=== PATIENT | female | born 1980 | race Caucasian/White ===

== ENCOUNTER 2024-02-16 20:44 | Emergency (ER) | payer SELFPAY ==
[2024-02-16] MEDS ORDERED: ONDANSETRON 4 MG/2 ML VIAL ONE (21:04)
[2024-02-16 21:22] LABS: Specific Gravity > 1.030 (1.005-1.030)
[2024-02-16 21:24] LABS: Specific Gravity > 1.030 (1.005-1.030); Urine Bacteria <20 /HPF (<20); Urine Bilirubin 1+ (Negative); Urine Blood 1+ (Negative); Urine Clarity Extremely Turbid (Clear); Urine Color Yellow (Yellow); Urine Crystals Unidentified Few /HPF (None Seen); Urine Culture Reflex Order NOT NEEDED; Urine Glucose TRACE (Negative); Urine Ketones 4+ (Over) (Negative); Urine Microscopic Reflex YN ORDER UMIC; Urine Mucus 1+ /HPF (None Seen); Urine Nitrite NEGATIVE (Negative); Urine Protein 2+ (Negative); Urine Urobilinogen 1+ (Normal); Urine WBC <5 /HPF (<5); Urine WBC Clump Rare /HPF (None Seen); Urine Yeast (Budding) Trace /HPF (None Seen)
[2024-02-16 21:27] LABS: Absolute Monocytes 0.8 K/uL (0.1-1.3); Absolute Neutrophil 11.6 K/uL (1.8-8.0); Basophils % 0.3 % (0-1.3); Eosinophils % 0.2 % (0-4.4); Hematocrit 40.8 % (36.0-45.0); Hemoglobin 13.6 g/dL (12.0-15.0); Lymphocytes % 13.6 % (15.3-44.8); MCH 30.9 pg (27.0-35.0); MCHC 33.3 g/dL (32.0-36.0); MCV 92.9 fL (80-100); MPV 8.7 fL (7.6-11.3); Monocytes % 5.4 % (3.3-12.3); Neutrophils % 80.5 % (41.7-73.7); Platelets 345 thou/uL (152-406); RBC Red Blood Cell Count 4.39 M/uL (3.86-4.86); Red Cell Distribution Width 13.4 % (12.1-15.2)
[2024-02-16 21:47] LABS: Albumin 4.3 g/dL (3.4-5.0); Albumin/Globulin Ratio 1.3 (1.1-1.8); Anion Gap 10.2 mEq/L (5.0-15.0); Bilirubin Total 0.7 mg/dL (0.2-1.0); Globulin 3.2 g/dL (2.3-3.5); Potassium 3.2 mEq/L (3.5-5.1); Protein, Total 7.5 g/dL (6.4-8.2)
[2024-02-16] MEDS ORDERED: FAMOTIDINE 20 MG/2 ML VIAL IV ONE (22:01)
[2024-02-16] MEDS ORDERED: METOCLOPRAMIDE 10 MG/2mL INJ ONE (22:01)
[2024-02-16] MEDS ORDERED: NA CHLORIDE 0.9% 3,000 ML ONE (22:02)
[2024-02-16] MEDS ORDERED: PROMETHAZINE INJ 25 MG/ML AMP ONE (22:11)
--- NOTE | 2024-02-17 00:41 | RAD REPORT ---
EXAM: Abdomen Pelvis W Contrast CLINICAL INDICATION: 43-year-old female with abdominal pain. COMPARISON: None. EXAMINATION: CT of the abdomen and pelvis was performed following intravenous administration of contr ast. Oral contrast was not administered. Multiplanar reformatted images were provided. This exam was performed according to our departmental dose optimization program which includes use of automated exposure control, adjustment of the mA and/or kV according to patient size and/or use of iterative reconstruction technique. FINDINGS: Chest: Evaluation through the lung bases reveals no focal opacity, pleural effusion or pneumothorax. Heart size is within normal limits. No pericardial effusion. Abdomen and pelvis: The liver, gallbladder, pancreas, spleen, bilateral kidneys and bilateral adrenal glands are within normal limits. Focus of hypoattenuation within the left lobe liver suggestive of a hepatic cyst measuring 6 Hounsfie ld units and 1.6 cm (series 201, image 34). The vessels are patent and normal in caliber. No abdominopelvic lymph nodes are noted to be pathologically enlarged by CT measurement criteria. The bowel is within normal limits without abnormal bowel wall thickness or bowel dilation. No free air. No organizing abdominopelvic fluid collections. The appendix is within normal limits. Th e uterus and adnexa are within normal limits. Trace fluid present within the dependent pelvis, a nonspecific finding which may be physiologic in a patient this age. The osseous structures are within normal limits. IMPRESSION: 1. No specific acute intra-abdominal findings are noted to suggest etiology of the patient's abdomi nal pain. 2. Trace fluid present within the dependent pelvis, a nonspecific finding which may be physiologic in a patient this age. There Electronically signed by: Anabelle James MD 02/17/2024 12:06 AM [facility] Due to temporary technical issues with the PACS/I3 Precision reporting system, reports are being gwen d by the in-house radiologist without review as a courtesy to ensure prompt reporting the interpreting radiologist is fully responsible for the content of the report. Transcribed Date/Time: 02/17/2024 12:41 AM
--- NOTE | 2024-02-17 00:58 | ER ---
Nurse's Notes [facility] Name: Nena Aly Age: 43 yrs Sex: Female : 1980 Arrival Date: 02/16/2024 Time: 20:44 Bed 6 Private MD: Diagnosis: Acute food poisoning, acute gastroenteritis Presentation: 02/15 20:54 Chief complaint: Patient states: nausea that started around noon. States she has been cp4 unable to hold down water and crackers. Coronavirus screen: Client denies travel out of the [place] in the last 14 days. At this time, the client does not indicate any symptoms associated with coronavirus-19. Ebola Screen: Patient negative for fever greater than or equal to 101.5 degrees Fahrenheit, and additional compatible Ebola Virus Disease symptoms Patient denies exposure to infectious person. Patient denies travel to an Ebola-affected area in the 21 days before illness onset. No symptoms or risks identified at this time. Initial Sepsis Screen: Does the patient meet any 2 criteria? No. Patient's initial sepsis screen is negative. Does the patient have a suspected source of infection? No. Patient's initial sepsis screen is negative. Risk Assessment: Do you want to hurt yourself or someone else? Patient reports no desire to harm self or others. Onset of symptoms was February 16, 2024 at 12:00. 20:54 Method Of Arrival: Ambulatory 4 20:54 Acuity: ANDREI 3 cp4 Triage Assessment: 20:56 General: Appears in no apparent distress. uncomfortable, Behavior is calm, cooperative, cp4 appropriate for age. Pain: Denies pain. EENT: No signs and/or symptoms were reported regarding the EENT system. Neuro: Level of Consciousness is awake, alert, obeys commands, Oriented to person, place, time, situation. Cardiovascular: Patient's skin is warm and dry. Respiratory: Airway is patent Respiratory effort is even, unlabored. GI: Reports nausea, vomiting. : No signs and/or symptoms were reported regarding the genitourinary system. Derm: No signs and/or symptoms reported regarding the dermatologic system. Musculoskeletal: No signs and/or symptoms reported regarding the musculoskeletal system. COMPANION: 20:58 Not cp4 Historical: - Allergies: 20:56 No Known Allergies; cp4 - Immunization history:: Adult Immunizations up to date. - Infectious Disease History:: Denies. - Social history:: Smoking status: Patient denies any tobacco usage or history of. - Family history:: not pertinent. Screenin:58 [facility] ED Fall Risk Assessment (Adult) History of falling in the last 3 months, cp4 including since admission No falls in past 3 months (0 pts) Confusion or Disorientation No (0 pts) Intoxicated or Sedated No (0 pts) Impaired Gait No (0 pts) Mobility Assist Device Used No (0 pt) Altered Elimination No (0 pt) Score/Fall Risk Level 0 - 2 = Low Risk Oriented to surroundings, Maintained a safe environment, Assessed \T\ reinforced patient's understanding of fall precautions, Hourly rounding (assess needs \T\ fall precautionary measures) done. Abuse screen: Denies threats or abuse. Nutritional screening: No deficits noted. Tuberculosis screening: No symptoms or risk factors identified. Assessment: 20:58 Reassessment: No changes from previously documented assessment. GI: Abdomen is round cp4 non-distended, Bowel sounds present X 4 quads. Abd is soft and non tender X 4 quads. 22:21 GI: Pt is actively vomiting bile, clear fluid. lg3 22:44 Reassessment: Patient appears in no apparent distress at this time. Patient and/or bm8 family updated on plan of care and expected duration. Pain level reassessed. Patient is alert, oriented x 3, equal unlabored respirations, skin warm/dry/pink. Patient states feeling better. Patient states symptoms have improved. General: Appears in no apparent distress. comfortable, Behavior is calm, cooperative, appropriate for age. GI: Patient currently denies nausea, vomiting. 23:30 Reassessment: Patient appears in no apparent distress at this time. Patient and/or bm8 family updated on plan of care and expected duration. Pain level reassessed. Patient is alert, oriented x 3, equal unlabored respirations, skin warm/dry/pink. Vital Signs: 20:54 BP 123 / 98; Pulse 70; Resp 18; Temp 99; Pulse Ox 97% ; Weight 89.81 kg; Height 5 ft. 6 cp4 in. ; Pain 0/10; 22:44 BP 136 / 87; Pulse 75; Resp 17; Temp 99; Pulse Ox 99% ; Pain 2/10; bm8 23:30 BP 124 / 68; Pulse 86; Resp 18; Temp 99; Pulse Ox 98% ; Pain 2/10; bm8 02/16 01:08 BP 124 / 72; Pulse 81; Resp 18; Pulse Ox 99% ; cp4 02/15 20:54 Body Mass Index 31.96 (89.81 kg, 167.64 cm) cp4 02/15 20:54 Pain Scale: Adult cp4 22:44 Pain Scale: Adult bm8 23:30 Pain Scale: Adult bm8 [place] Coma Score: 02/15 22:44 Eye Response: spontaneous(4). Motor Response: obeys commands(6). Verbal Response: bm8 oriented(5). Total: 15. 23:30 Eye Response: spontaneous(4). Motor Response: obeys commands(6). Verbal Response: bm8 oriented(5). Total: 15. 02/16 20:55 Eye Response: spontaneous(4). Motor Response: obeys commands(6). Verbal Response: sp4 oriented(5). Total: 15. ED Course: 02/15 20:47 Patient arrived in ED. gm2 20:48 Kavon Almonte MD is Attending Physician. sp4 20:54 Jessica Serrano is Primary Nurse. cp4 20:56 Triage completed. cp4 20:58 Arm band placed on right wrist. Patient placed in waiting room. cp4 20:58 Bed in low position. Call light in reach. Side rails up X 1. cp4 20:58 No provider procedures requiring assistance completed. cp4 21:13 Inserted saline lock: 20 gauge in right antecubital area, using aseptic technique. cp4 Blood collected. Flushed with 10 mL NS. 21:18 Initial lab(s) drawn, by me. vk 22:56 CT Abd/Pelvis - IV Contrast Only In Process Unspecified. EDMS 02/16 00:56 Adam Ralph DO is Referral Physician. sp4 01:09 Provided Education on: vomiting and clear liquid diet.. cp4 01:09 intact, bleeding controlled, No redness/swelling at site. Pressure dressing applied. cp4 Administered Medications: 02/15 21:13 Drug: Ondansetron IVP 8 mg IVP once; over 2 minutes Route: IVP; Site: right antecubital;cp4 02/16 00:00 Follow up: Response: No adverse reaction cp4 02/15 22:09 Drug: NS 0.9% IV (30 ml/kg) 30 ml/kg IV at bolus once; Sepsis Protocol; to be given as lg3 a bolus over 90 minutes Route: IV; Rate: bolus; Site: right antecubital; 02/16 01:11 Follow up: IV Status: Completed infusion cp4 02/15 22:10 Drug: metoCLOPramide IVP 10 mg IVP once; over 1 to 2 minutes Route: IVP; Site: right lg3 antecubital; 02/16 00:00 Follow up: Response: No adverse reaction cp4 02/15 22:10 Drug: Famotidine IVP 20 mg IVP once; dilute with 10 mL 0.9% NaCl; give over 2 minutes lg3 Route: IVP; Site: right antecubital; 02/16 00:00 Follow up: Response: No adverse reaction cp4 02/15 22:22 Drug: Promethazine IM 50 mg IM once Route: IM; Site: right deltoid; lg3 02/16 00:00 Follow up: Response: No adverse reaction; Nausea is decreased cp4 Medication: 02/15 20:58 VIS not applicable for this client. cp4 Outcome: 02/16 00:57 Discharge ordered by . sp4 01:09 Discharged to home ambulatory, cp4 01:09 Condition: stable 01:09 Discharge instructions given to patient, family, Instructed on discharge instructions, follow up and referral plans. medication usage, Demonstrated understanding of instructions, follow-up care, medications, Prescriptions given X 2, 01:14 Patient left the ED. cp4 Signatures: Dispatcher [employer] EDRae Hart, RN RN lg3 Kavon Almonte MD MD sp4 Jessica Serrano cp4 Renate Ball gm2 Neli Medrano Brad, RN RN bm8
--- NOTE | 2024-02-17 00:58 | EDPHYS ---
Physician Documentation [facility] Name: Nena Aly Age: 43 yrs Sex: Female : 1980 Arrival Date: 02/16/2024 Time: 20:44 Bed 6 Private MD: ED Physician Kavon Almonte HPI: 02/15 20:48 This 43 yrs old Female presents to ER via Unassigned with complaints of sp4 Nausea/Vomiting, Dizziness. 02/16 20:55 43 -year-old female presents to the ER with nausea vomiting and dizziness, sp4 denies diarrhea. 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 - Infectious Disease History:: Denies. - Social history:: Smoking status: Patient denies any tobacco usage or history of. - Family history:: not pertinent. ROS: 02/16 20:55 Constitutional: Negative for fever, chills, and weight loss, Abdomen/GI: Positive sp4 nausea vomiting and dizziness All other systems are negative, Exam: 20:55 Constitutional: This is a well developed, well nourished patient who is awake, alert, sp4 and in no acute distress. Head/Face: Normocephalic, atraumatic. Eyes: Pupils equal round and reactive to light, extra-ocular motions intact. Lids and lashes normal. Conjunctiva and sclera are not injected. Cornea within normal limits. Periorbital areas with no swelling, redness, or edema. ENT: Nares patent. No nasal discharge, no septal abnormalities noted. Tympanic membranes are normal and external auditory canals are clear. Oropharynx with no redness, swelling, or masses, exudates, or evidence of obstruction, uvula midline. Mucous membranes moist. Neck: Trachea midline, no thyromegaly or masses palpated, and no cervical lymphadenopathy. Supple, full range of motion without nuchal rigidity, or vertebral point tenderness. Chest/axilla: Normal chest wall appearance and motion. Nontender with no deformity. No lesions are appreciated. Cardiovascular: Regular rate and rhythm with a normal S1 and S2. No gallops, murmurs, or rubs. Normal PMI, no JVD. No pulse deficits. Respiratory: Lungs have equal breath sounds bilaterally, clear to auscultation and percussion. No rales, rhonchi or wheezes noted. No increased work of breathing, no retractions or nasal flaring. Abdomen/GI: Soft, with normal bowel sounds. No distension or tympany. No guarding or rebound. No evidence of tenderness throughout. Back: No spinal tenderness. No costovertebral tenderness. Skin: Warm, dry with normal turgor. Normal color with no rashes, no lesions, and no evidence of cellulitis. MS/ Extremity: Pulses equal, no cyanosis. Neurovascular intact. Full, normal range of motion. Neuro: Awake and alert, GCS 15, oriented to person, place, time, and situation. Cranial nerves II-XII grossly intact. Motor strength 5/5 in all extremities. Sensory grossly intact. Psych: Awake, alert, with orientation to person, place and time. Behavior, mood, and affect are within normal limits Vital Signs: 02/15 20:54 BP 123 / 98; Pulse 70; Resp 18; Temp 99; Pulse Ox 97% ; Weight 89.81 kg; Height 5 ft. 6 cp4 in. ; Pain 0/10; 22:44 BP 136 / 87; Pulse 75; Resp 17; Temp 99; Pulse Ox 99% ; Pain 2/10; bm8 23:30 BP 124 / 68; Pulse 86; Resp 18; Temp 99; Pulse Ox 98% ; Pain 2/10; bm8 02/16 01:08 BP 124 / 72; Pulse 81; Resp 18; Pulse Ox 99% ; cp4 02/15 20:54 Body Mass Index 31.96 (89.81 kg, 167.64 cm) cp4 02/15 20:54 Pain Scale: Adult cp4 22:44 Pain Scale: Adult bm8 23:30 Pain Scale: Adult bm8 [place] Coma Score: 02/15 22:44 Eye Response: spontaneous(4). Motor Response: obeys commands(6). Verbal Response: bm8 oriented(5). Total: 15. 23:30 Eye Response: spontaneous(4). Motor Response: obeys commands(6). Verbal Response: bm8 oriented(5). Total: 15. 02/16 20:55 Eye Response: spontaneous(4). Motor Response: obeys commands(6). Verbal Response: sp4 oriented(5). Total: 15. MDM: 02/15 20:49 Medical Screening Exam initiated sp4 02/16 00:24 ED course: EXAM: Abdomen Pelvis W Contrast CLINICAL INDICATION: 43-year-old female with sp4 abdominal pain. COMPARISON: None. EXAMINATION: CT of the abdomen and pelvis was performed following intravenous administration of contrast. Oral contrast was not administered. Multiplanar reformatted images were provided. This exam was performed according to our departmental dose optimization program which includes use of automated exposure control, adjustment of the mA and/or kV according to patient size and/or use of iterative reconstruction technique. FINDINGS: Chest: Evaluation through the lung bases reveals no focal opacity, pleural effusion or pneumothorax. Heart size is within normal limits. No pericardial effusion. Abdomen and pelvis: The liver, gallbladder, pancreas, spleen, bilateral kidneys and bilateral adrenal glands are within normal limits. Focus of hypoattenuation within the left lobe liver suggestive of a hepatic cyst measuring 6 Hounsfield units and 1.6 cm (series 201, image 34). The vessels are patent and normal in caliber. No abdominopelvic lymph nodes are noted to be pathologically enlarged by CT measurement criteria. The bowel is within normal limits without abnormal bowel wall thickness or bowel dilation. No free air. No organizing abdominopelvic fluid collections. The appendix is within normal limits. The uterus and adnexa are within normal limits. Trace fluid present within the dependent pelvis, a nonspecific finding which may be physiologic in a patient this age. The osseous structures are within normal limits. IMPRESSION: 1. No specific acute intra-abdominal findings are noted to suggest etiology of the patient's abdominal pain. 2. Trace fluid present within the dependent pelvis, a nonspecific finding which may be physiologic in a patient this age. 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 20:56 Differential diagnosis: Nonspecific abd pain, gastritis, cholecystitis, viral sp4 gastroenteritis, gastroenteritis. Data reviewed: vital signs, nurses notes, lab test result(s), radiologic studies, CT scan. ED course: Vomiting has responded to Phenergan IM. Patient will be prescribed Phenergan as needed , advised clear liquid diet for 24. 02/15 20:49 Order name: CBC with Diff; Complete Time: 23:14 sp4 02/15 20:49 Order name: CMP; Complete Time: 23:14 sp4 02/15 20:49 Order name: Lipase; Complete Time: 23:14 sp4 02/15 20:49 Order name: Test, Urine; Complete Time: 23:14 sp4 02/15 20:49 Order name: Urinalysis w/ reflexes; Complete Time: 23:14 sp4 02/15 21:33 Order name: CT Abd/Pelvis - IV Contrast Only 4 02/15 20:49 Order name: IV Saline Lock; Complete Time: 21:12 sp4 02/15 20:49 Order name: Labs collected and sent; Complete Time: 21:12 sp4 Administered Medications: 02/15 21:13 Drug: Ondansetron IVP 8 mg IVP once; over 2 minutes Route: IVP; Site: right antecubital;4 02/16 00:00 Follow up: Response: No adverse reaction [facility] 02/15 22:09 Drug: NS 0.9% IV (30 ml/kg) 30 ml/kg IV at bolus once; Sepsis Protocol; to be given as lg3 a bolus over 90 minutes Route: IV; Rate: bolus; Site: right antecubital; 02/16 01:11 Follow up: IV Status: Completed infusion [facility] 02/15 22:10 Drug: metoCLOPramide IVP 10 mg IVP once; over 1 to 2 minutes Route: IVP; Site: right lg3 antecubital; 02/16 00:00 Follow up: Response: No adverse reaction [facility] 02/15 22:10 Drug: Famotidine IVP 20 mg IVP once; dilute with 10 mL 0.9% NaCl; give over 2 minutes lg3 Route: IVP; Site: right antecubital; 02/16 00:00 Follow up: Response: No adverse reaction [facility] 02/15 22:22 Drug: Promethazine IM 50 mg IM once Route: IM; Site: right deltoid; lg3 02/16 00:00 Follow up: Response: No adverse reaction; Nausea is decreased 4 Disposition Summary: 02/17/24 00:57 Discharge Ordered Problem: new sp4 Symptoms: have improved sp4 Condition: Stable sp4 Diagnosis - Acute food poisoning, acute gastroenteritis sp4 Followup: sp4 - With: Adam Ralph DO - When: 7 - 10 days - Reason: Recheck today's complaints Discharge Instructions: - Discharge Summary Sheet sp4 - Clear Liquid Diet, Adult, [id number] sp4 Forms: - Patient Portal Instructions sp4 Prescriptions: - promethazine 25 mg Oral tablet - take 1 tablet ORAL route every 6 hours As needed PRN nausea; 30 tablet; sp4 Refills: 0, Product Selection Permitted - ondansetron 8 mg Oral Tablet,disintegrating - take 1 tablet ORAL route every 8 hours PRN nausea; 30 tablet; Refills: 0, sp4 Product Selection Permitted Signatures: Dispatcher [employer] Rae Stein RN RN lg3 Kavon Almonte MD MD sp4 Jessica Serrano 4
[2024-02-17 01:18] VITALS: TEMP 99
[2024-02-17 01:23] VITALS: BP 124/72; O2SAT 99
== END 2024-02-17 01:14 | disposition home or self-care (01) ==
LOC: ER 20:44
DX: A05.9 Bacterial foodborne intoxication, unspecified (principal); K52.9 Noninfective gastroenteritis and colitis, unspecified
CPT/HCPCS: 36415; 74177; 80053; 81001; 81025; 83690; 85025; 96365; 96366; 96372; 96375; 99284; J2405; J2550; J2765; J7030; Q9967